=== PATIENT | male | born 1980 | race Caucasian/White ===

== ENCOUNTER 2018-02-24 07:35 | Emergency (ER) | payer MEDICARE, MEDICAID ==
[~2018-02-24] VITALS: Ht 185.4 cm; Wt 140.0 kg
[2018-02-24 07:40] VITALS: BP 131/81; PULSE 119; RESP 16; TEMP 99.6; O2SAT 93
[2018-02-24 08:07] VITALS: BP 132/73; PULSE 116; RESP 18; TEMP 99; O2SAT 95
[2018-02-24] MEDS ORDERED: VICT18IN SQ (08:14)
[2018-02-24] MEDS ORDERED: AMBI10TA PO (08:14)
[2018-02-24] MEDS ORDERED: VENL100T PO (08:14)
[2018-02-24] MEDS ORDERED: MORP1TAB26 PO (08:14)
[2018-02-24] MEDS ORDERED: CYCL10TA PO (08:14)
[2018-02-24] MEDS ORDERED: BUPR150XL PO (08:14)
[2018-02-24] MEDS ORDERED: SODIUM CHLOR 0.9% 1000 ML INJ 1,000 ML IV ONE (08:30)
--- NOTE | 2018-02-24 08:31 | PD ---
HPI Chief Complaint: Fever Time Seen by Provider: 08:19 Travel History International Travel<30 days: No Contact w/Intl Traveler<30days: No Traveled to known affect area: No History of Present Illness HPI Patient presents to the emergency department with fever on yesterday. T-max is 102.9, which is treated with ibuprofen 800 mg p.o. yesterday. He reports nausea and chills. He denies vomiting, diarrhea, dysuria, abdominal pain, known sick contacts, sore throat, neck pain, headache, cough, shortness of breath, chest pain, or rash. PFSH Past Medical History Anxiety: Yes Depression: Yes Diabetes: Yes Patient Takes Glucophage: No Psychiatric: Yes (ptsd ) Thyroid Disease: Yes (hyper ) Social History Alcohol Use: No Tobacco Use: No Substance Use: No Allergies-Medications (Allergen,Severity, Reaction): Coded Allergies: No Known Allergies (Unverified , 02/24/18) Reported Meds & Prescriptions Reported Meds & Active Scripts Active Reported Flexeril (Cyclobenzaprine HCl) 10 Mg Tab 10 Mg PO TID PRN Ambien (Zolpidem Tartrate) 10 Mg Tab 20 Mg PO HS PRN Morphine ER (Morphine Sulfate) 60 Mg Tab 60 Mg PO DAILY Wellbutrin Xl 24 HR (Bupropion HCl) 150 Mg Tab 150 Mg PO DAILY Effexor (Venlafaxine HCl) 100 Mg Tab 275 Mg PO DAILY Victoza Inj (Liraglutide Inj) 18 Mg/3 Ml Pen 1.2 Mg SQ DAILY Physical Exam Narrative GENERAL: No acute distress SKIN: Focused skin assessment warm/dry. No rash. HEAD: Atraumatic. Normocephalic. EYES: Pupils equal and round. No scleral icterus. No injection or drainage. ENT: No nasal bleeding or discharge. Mucous membranes pink and moist. Normal oralpharynx. NECK: Trachea midline. No JVD. CARDIOVASCULAR: Tachycardia. No murmur appreciated. RESPIRATORY: No accessory muscle use. Clear to auscultation. Breath sounds equal bilaterally. GASTROINTESTINAL: Abdomen soft, non-tender, nondistended. Hepatic and splenic margins not palpable. MUSCULOSKELETAL: No obvious deformities. No clubbing. No cyanosis. No edema. NEUROLOGICAL: Awake and alert. No obvious cranial nerve deficits. Motor grossly within normal limits. Normal speech. PSYCHIATRIC: Appropriate mood and affect; insight and judgment normal. Data Data Last Documented VS Vital Signs Date Time Temp Pulse Resp B/P (MAP) Pulse Ox O2 Delivery O2 Flow Rate FiO2 02/24/18 10:32 98.3 103 18 128/69 (88) 94 Room Air Orders Orders Electrocardiogram (02/24/18 08:26) Complete Blood Count With Diff (02/24/18 08:26) Comprehensive Metabolic Panel (02/24/18 08:) Urinalysis - C+S If Indicated (02/24/18 08:26) Chest, Pa & Lat (02/24/18 08:26) Iv Access Insert/Monitor (02/24/18:) Ecg Monitoring (02/24/18:) Oximetry (02/24/18:) Lactic Acid (02/24/18:) Blood Culture (02/24/18 08:) Sodium Chlor 0.9% 1000 Ml Inj (Ns 1000 M (02/24/18 08:30) Labs Laboratory Tests Test 02/24/18 08:30 02/24/18 08:35 Urine Color YELLOW Urine Turbidity CLEAR Urine pH 5.0 Urine Specific [place] 1.005 Urine Protein NEG mg/dL Urine Glucose (UA) NEG mg/dL Urine Ketones NEG mg/dL Urine Occult Blood SMALL Urine Nitrite NEG Urine Bilirubin NEG Urine Urobilinogen LESS THAN 2 mg/dL Urine Leukocyte Esterase NEG Urine RBC LESS THAN 1 /hpf Urine WBC LESS THAN 1 /hpf Urine Mucus FEW /lpf Microscopic Urinalysis Comment CULT NOT INDICATED White Blood Count 6.2 TH/MM3 Red Blood Count 5.37 MIL/MM3 Hemoglobin 14.3 GM/DL Hematocrit 41.5 % Mean Corpuscular Volume 77.3 FL Mean Corpuscular Hemoglobin 26.6 PG Mean Corpuscular Hemoglobin Concent 34.4 % Red Cell Distribution Width 14.2 % Platelet Count 318 TH/MM3 Mean Platelet Volume 6.1 FL Neutrophils (%) (Auto) 62.0 % Lymphocytes (%) (Auto) 16.2 % Monocytes (%) (Auto) 20.5 % Eosinophils (%) (Auto) 0.7 % Basophils (%) (Auto) 0.6 % Neutrophils # (Auto) 3.8 TH/MM3 Lymphocytes # (Auto) 1.0 TH/MM3 Monocytes # (Auto) 1.3 TH/MM3 Eosinophils # (Auto) 0.0 TH/MM3 Basophils # (Auto) 0.0 TH/MM3 CBC Comment DIFF FINAL Differential Comment Blood Urea Nitrogen 10 MG/DL Creatinine 0.93 MG/DL Random Glucose 152 MG/DL Total Protein 7.2 GM/DL Albumin 3.4 GM/DL Calcium Level 8.4 MG/DL Alkaline Phosphatase 104 U/L Aspartate Amino Transf (AST/SGOT) 27 U/L Alanine Aminotransferase (ALT/SGPT) 43 U/L Total Bilirubin 0.6 MG/DL Sodium Level 139 MEQ/L Potassium Level 3.8 MEQ/L Chloride Level 106 MEQ/L Carbon Dioxide Level 22.7 MEQ/L Anion Gap 10 MEQ/L Estimat Glomerular Filtration Rate 91 ML/MIN Lactic Acid Level 1.2 mmol/L [facility] Medical Decision Making Medical Screen Exam Complete: Yes Emergency Medical Condition: Yes Interpretation(s) ECG: Sinus tach at 107, Q-wave in lead III, Labs: Normal white count and bands and lactate, slight increase in glucose Last Impressions Chest X-Ray 02/24/18 0826 Signed Impressions: CONCLUSION: Negative for acute process Differential Diagnosis Sepsis, viral illness,pneumonia, UTI Narrative Course Patient presents to the emergency department complaining of fever. Patient placed on a stock blender, IV access obtained, 1 L IV normal saline ordered, EKG and labs ordered. Diagnosis Primary Impression: Fever of unknown origin Additional Instructions: 1. Meds as directed 2. Follow-up with primary care doctor in 24-48 hours. 3. Return to ER for fever, vomiting, abdominal pain, diarrhea, chest pain, shortness of breath, or any new/worrisome/worsening symptoms. Disposition: 01 DISCHARGE HOME Condition: Stable Chey Rivera MD Feb 24, 2018 08:31
[2018-02-24 09:00] VITALS: RESP 18; O2SAT 96
[2018-02-24 09:11] LABS: AUTOMATED NEUTROPHIL # 3.8 TH/MM3 (1.8-7.7); BASOPHIL % 0.6 % (0.0-2.0); EOSINOPHIL % 0.7 % (0.0-4.0); HEMATOCRIT 41.5 % (39.0-51.0); HEMOGLOBIN 14.3 GM/DL (13.0-17.0); LYMPH % 16.2 % (9.0-44.0); MEAN CELL VOLUME 77.3 FL (80.0-100.0); MEAN CORPUSCULAR HEMOGLOBIN 26.6 PG (27.0-34.0); MEAN CORPUSCULAR HGB CONC 34.4 % (32.0-36.0); MEAN PLATELET VOLUME 6.1 FL (7.0-11.0); MONO % 20.5 % (0.0-8.0); MONOCYTE # 1.3 TH/MM3 (0-0.9); PLATELET COUNT 318 TH/MM3 (150-450); RED BLOOD COUNT 5.37 MIL/MM3 (4.50-5.90); RED CELL DISTRIBUTION WIDTH 14.2 % (11.6-17.2); WHITE BLOOD COUNT 6.2 TH/MM3 (4.0-11.0)
--- NOTE | 2018-02-24 09:12 | RADRPT ---
EXAM DATE: 02/24/2018 9:09 AM EDT AGE/SEX: 37 years / Male INDICATIONS: Fever. CLINICAL DATA: This is the patient's initial encounter. Patient reports that signs and symptoms have been present for 1 day and indicates a pain score of 0/10. MEDICAL/SURGICAL HISTORY: None. None. COMPARISON: No prior exams available for comparison. FINDINGS: PA and lateral views of the chest demonstrate the lungs to be symmetrically aerated without evidence of mass, infiltrate or effusion. The cardiomediastinal contours are unremarkable. Osseous structures are intact. CONCLUSION: Negative for acute process Electronically signed by: Willy Ch MD 02/24/2018 9:11 AM EDT
[2018-02-24 09:36] LABS: BILIRUBIN, URINE NEG (NEG); BLOOD, URINE SMALL (NEG); GLUCOSE,URINE NEG (NEG); KETONE, URINE NEG (NEG); MUCUS URINE FEW /lpf (OCC); NITRITE,URINE NEG (NEG); URINE COLOR YELLOW (YELLW/STRAW); URINE LEUKOCYTE ESTERASE NEG (NEG)
[2018-02-24 09:55] LABS: BLOOD UREA NITROGEN 10 MG/DL (7-18); CREATININE 0.93 MG/DL (0.60-1.30); GLOMERULAR FILTRATION RATE 91 ML/MIN (>89); GLUCOSE,RANDOM 152 MG/DL (74-106)
[2018-02-24 09:56] LABS: ALBUMIN 3.4 GM/DL (3.4-5.0); ALKALINE PHOSPHATASE 104 U/L (45-117); ALT (GPT) 43 U/L (12-78); AST (GOT) 27 U/L (15-37); CALCIUM 8.4 MG/DL (8.5-10.1); SODIUM (NA) 139 MEQ/L (136-145); TOTAL BILIRUBIN ADULT 0.6 MG/DL (0.2-1.0); TOTAL PROTEIN 7.2 GM/DL (6.4-8.2)
[2018-02-24 09:57] LABS: BICARBONATE 22.7 MEQ/L (21.0-32.0); CHLORIDE 106 MEQ/L (98-107)
[2018-02-24 10:32] VITALS: BP 128/69; PULSE 103; RESP 18; TEMP 98.3; O2SAT 94
--- NOTE | 2018-02-24 12:29 | EKG ---
Date Performed: 02/24/2018 Time Performed: 08:12:49 PTAGE: 37 years EKG: SINUS TACHYCARDIA ABNORMAL RHYTHM ECG NO PREVIOUS TRACING DOCTOR: Josue Toledo Interpretating Date/Time 02/24/2018 12:26:03
== END 2018-02-24 11:26 | disposition home or self-care (01) ==
LOC: NEPC 07:35
DX: R50.9 Fever, unspecified (principal); R00.0 Tachycardia, unspecified; R11.0 Nausea; F32.9 Major depressive disorder, single episode, unspecified; F43.10 Post-traumatic stress disorder, unspecified
CPT/HCPCS: 71046; 80053; 81001; 83605; 85025; 87040; 93005; 99285; J7030